=== PATIENT | female | born 1940 | race Caucasian/White ===

== ENCOUNTER 2016-02-25 13:11 | Emergency (ER) | payer OTHER ==
[2016-02-25 13:31] VITALS: BP 166/70; TEMP 98.4; BMI 41.5
[2016-02-25] MEDS ORDERED: DECADRON 4 MG/ML SDV IM STA (13:36)
[2016-02-25] MEDS ORDERED: DUONEB NEB STA (13:36)
--- NOTE | 2016-02-25 13:59 | DI ---
EXAM: PA and lateral views of the chest HISTORY: Cough. COMPARISON: None FINDINGS: The cardiomediastinal silhouette is the is unremarkable with mild fullness in the right h ilum.. There is no pneumothorax or pleural effusion. There is linear consolidation in the right mi ddle lobe. 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 IMPRESSION: Linear right middle lobe consolidation with fullness in the right hilum may represent a telectasis versus fibrosis. Fullness in the right hilum may represent vascular structure/aortic ect anika, soft tissue or mass. CT chest with contrast is recommended to further evaluate.
[2016-02-25 14:02] LABS: BASOPHILS # (AUTO) 0.1 K/uL (0-0.2); BASOPHILS % (AUTO) 0.7 % (0.0-3.0); EOSINOPHILS # (AUTO) 0.2 K/ul (0.0-0.7); EOSINOPHILS % (AUTO) 2.1 % (0.0-7.0); HEMATOCRIT 40.5 % (37.0-47.0); IMMATURE GRANULOCYTE % (AUTO) 0.3 % (0.0-5.0); LYMPHOCYTES % (AUTO) 22.3 (10.0-50.0); MEAN CORPUSCULAR HEMOGLOBIN 28.1 pg (27.0-31.0); MEAN CORPUSCULAR HGB CONC 32.1 (31.8-35.4); MEAN CORPUSCULAR VOLUME 87.5 fl (81.0-99.0); MONOCYTES # (AUTO) 0.6 K/uL (0.4-2.0); MONOCYTES % (AUTO) 6.5 (0-10); NEUTROPHILS # (AUTO) 6.1 K/ul (2.0-6.9); NEUTROPHILS % (AUTO) 68.1; PLATELET COUNT 264 10^3/uL (140-440); RED BLOOD COUNT 4.63 10^6/ul (4.20-5.40); WHITE BLOOD COUNT 8.98 K/ul (4.6-10.2)
[2016-02-25 14:31] LABS: ALBUMIN/GLOBULIN RATIO 1.14; ANION GAP 16.3; BILIRUBIN,TOTAL 0.69 mg/dL (0.00-1.20); BUN/CREATININE RATIO 24.17; CALCIUM 9.8 mg/dL (8.2-10.2); CREATININE 0.91 mg/dL (0.60-1.30); POTASSIUM 4.3 mmol/L (3.5-5.10); TOTAL PROTEIN 7.5 g/dL (5.8-8.1)
[2016-02-25 14:34] LABS: FLU INTERNAL QC INTERNAL QC VALID; RAPID FLU A NEGATIVE (NEGATIVE); RAPID FLU B NEGATIVE (NEGATIVE)
[2016-02-25 14:38] LABS: CREATINE KINASE MB 1.6 ng/ml (0.0-3.6)
--- NOTE | 2016-02-25 15:15 | ED.PDOC ---
General ED Provider: Dr. MARISSA MCDERMOTT Chief Complaint: Respiratory Complaint Stated Complaint: cough Time Seen by Physician: 13:11 (seen nursing staff at all times ) Mode of Arrival: Wheelchair Information Source: Patient Exam Limitations: No limitations Primary Care Provider: NANI WREN Nursing and Triage Documentation Reviewed and Agree: Yes Respiratory Complaint Exam - Respiratory Complaint/Exam Onset/Duration: 3 days of flu like symptoms Symptoms Are: Resolved Timing: Intermittent Initial Severity: Moderate Current Severity: Mild Location: Chest Character: Reports: Non-productive cough Aggravating: Reports: None Alleviating: Reports: Bronchodilators, Spontaneous resolution Associated Signs and Symptoms: Reports: Nasal congestion, Sore throat. Denies: Rapid breathing, Dyspnea, Fever, Chills, Chest pain, Pleuritic chest pain, Wheezing, Hemoptysis, Dizziness, Calf pain, Calf swelling, Edema, URI, Hoarseness, Sinus discomfort, Vomiting, Weight loss, Decreased oral intake, Increased thirst, Increased appetite, Increased urination Related History: Reports: Similar episode Related Surgical History: Reports: None Pulmonary Embolism Risk Factors: Bedrest Review of Systems - Review Of Systems Constitutional: Reports: Malaise Eyes: Reports: No symptoms Ears, Nose, Mouth, Throat: Reports: No symptoms Respiratory: Reports: Cough Cardiac: Reports: No symptoms GI: Reports: No symptoms : Reports: No symptoms Musculoskeletal: Reports: No symptoms Skin: Reports: No symptoms Neurological: Reports: No symptoms Endocrine: Reports: No symptoms Hematologic/Lymphatic: Reports: No symptoms All Other Systems: Reviewed and Negative Past Medical History - Past Medical History Previously Healthy: Yes Endocrine: Reports: Dyslipidemia Cardiovascular: Reports: Hypertension Respiratory: Reports: None Hematological: Reports: None Gastrointestinal: Reports: GERD Genitourinary: Reports: None Neuro/Psych: Reports: None Musculoskeletal: Reports: None Cancer: Reports: None Last Menstrual Period: unknown - Surgical History General Surgical History: Reports: None - Family History Family History: Reports: None - Social History Smoking Status: Former smoker Hx Substance Use: No Alcohol Screening: None Physical Exam - Physical Exam Appearance: Well-appearing, No pain distress, Well-nourished Eyes: TIM, EOMI, Conjunctiva clear ENT: Ears normal, Nose normal, Oropharynx normal Respiratory: Rhonchi Cardiovascular: RRR, Pulses normal, No rub, No murmur GI/: Soft, Nontender, No masses, Bowel sounds normal, No Organomegaly Musculoskeletal: Normal strength, ROM intact, No edema, No calf tenderness Skin: Warm, Dry, Normal color Neurological: Sensation intact, Motor intact, Reflexes intact, Cranial nerves intact, Alert, Oriented Psychiatric: Affect appropriate, Mood appropriate Interpretation - Radiology Interpretation Radiology Interpretation By: Radiologist Radiology Results: Positive (abnormality in the quetionable form of consolidation) - Motor 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 Rate: Normal Rhythm: Sinus Ectopy: None - EKG Interpretation Rate: Normal Rhythm: Sinus [place]: Left Re-Evaluation - Re-Evaluation Time of Re-Evaluation: 14:00 Status: Improved Vital Signs Stable: Yes Pain Level: no pain Appearance: NAD Lungs: Clear Skin: Warm and Dry Neuro: Alert and Oriented X3 CV: RRR - Re-Evaluation Time of Re-Evaluation: 15:15 Status: Improved Vital Signs Stable: Yes Appearance: NAD Skin: Warm and Dry Neuro: Alert and Oriented X3 CV: RRR Critical Care Note - Critical Care Note Total Time (mins): 0 Course - Course Hematology/Chemistry: 02/25/16 13:30 02/25/16 13:30 Orders, Labs, Meds: Lab Review 02/25/16 02/25/16 13:30 14:05 WBC 8.98 RBC 4.63 Hgb 13.0 Hct 40.5 MCV 87.5 MCH 28.1 MCHC 32.1 RDW Coeff of Vadim 14.6 Plt Count 264 Immature Gran % (Auto) 0.3 Neut % (Auto) 68.1 Lymph % (Auto) 22.3 [place] % (Auto) 6.5 Eos % (Auto) 2.1 Baso % (Auto) 0.7 Immature Gran # (Auto) 0.0 Neut # 6.1 Lymph # 2.0 [place] # 0.6 Eos # 0.2 Baso # 0.1 D-Dimer 0.85 Sodium 140 Potassium 4.3 Chloride 103 Carbon Dioxide 25 Anion Gap 16.3 BUN 22 H Creatinine 0.91 Estimated GFR (MDRD) 60.00 BUN/Creatinine Ratio 24.17 Glucose 123 H Calcium 9.8 Total Bilirubin 0.69 AST 35 ALT 32 Alkaline Phosphatase 136 Total Creatine Kinase 132 CK-MB (CK-2) 1.6 CK-MB (CK-2) % 1.92318 B-Natriuretic Peptide 14 Total Protein 7.5 Albumin 4.0 Globulin 3.5 Albumin/Globulin Ratio 1.14 Influenza A (Rapid) Negative Influenza B (Rapid) Negative Orders Category Date Time Status EKG-(ED ONLY) Stat CARDIO 02/25/16 13:36 Completed NEBULIZER TREATMENT Stat CARDIO 02/25/16 13:36 Completed NPO REMINDER: IMAGING ONCE CARE 02/25/16 14:02 Completed ED IV/MEDIPORT/POWERPORT .ONCE EMERGENCY 02/25/16 14:02 Active B-TYPE NATRIURETIC PEPTIDE Stat LAB 02/25/16 13:30 Completed CBC W/ AUTO DIFF Stat LAB 02/25/16 13:30 Completed COMPREHENSIVE METABOLIC PANEL Stat LAB 02/25/16 13:30 Completed CREATINE KINASE Stat LAB 02/25/16 13:30 Completed D-DIMER Stat LAB 02/25/16 13:30 Completed MOLECULAR GROUP A STREP Stat LAB 02/25/16 14:05 Results RAPID FLU A/B Stat LAB 02/25/16 14:05 Completed STREP SCREEN Stat LAB 02/25/16 14:05 Results 0.9 % Sodium Chloride [Saline Flush] MEDS 02/25/16 14:02 Ordered 1 syr IVF PRN PRN Dexamethasone 4 mg/ml Inj [Decadron 4 mg/ml Sdv] MEDS 02/25/16 13:36 Discontinued 4 mg IM ONCE STA Ipratropium/Albuterol Neb [Duoneb] MEDS 02/25/16 13:36 Discontinued 1 vial NEB ONCE STA CHEST, 2 VIEWS PA & LAT Stat RADS 02/25/16 13:[address] CHEST W/CONTRAST Stat RADS 02/25/16 14:01 Taken Medications Generic Name Dose Route Start Last Admin Trade Name Freq PRN Reason Stop Dose Admin Sodium Chloride 1 syr 02/25/16 14:02 Saline Flush IVF PRN PRN To flush IV Discontinued Medications Generic Name Dose Route Start Last Admin Trade Name Freq PRN Reason Stop Dose Admin Albuterol/Ipratropium 1 vial 02/25/16 13:36 02/25/16 13:52 Duoneb NEB 02/25/16 13:37 1 vial ONCE STA Administration Dexamethasone Sodium Phosphate 4 mg 02/25/16 13:36 02/25/16 14:04 Decadron 4 Mg/Ml Sdv IM 02/25/16 13:37 4 mg ONCE STA Administration Vital Signs: Temp Pulse Resp BP Pulse Ox 02/25/16 13:11 98.4 F 77 24 166/70 H 93 L Departure - Departure Time of Disposition: 16:00 Disposition: HOME SELF-CARE Discharge Problem: Bronchitis Instructions: Acute Bronchitis (ED) Condition: Good Pt referred to PMD for follow-up: No Additional Instructions: Please call your Family Physician as soon as possible to schedule a follow-up appointment. Allergies/Adverse Reactions: Allergies codeine Adverse Reaction (Verified 02/25/16 13:23) Penicillins Adverse Reaction (Verified 02/25/16 13:23) Sulfa (Sulfonamide Antibiotics) Adverse Reaction (Verified 02/25/16 13:23) Home Medications: Ambulatory Orders Amlodipine Besylate 5 mg PO DAILY 02/25/16 Atorvastatin Calcium [Lipitor] 10 mg PO DAILY 02/25/16 Benazepril HCl [Lotensin] 10 mg PO DAILY 02/25/16 Dicyclomine HCl 10 mg PO DAILY 02/25/16 Hydrocodone/Acetaminophen [Hydrocodon-Acetaminoph 7.5-325] 1 each PO BID Montelukast Sodium 10 mg PO DAILY 02/25/16 Omeprazole [Prilosec] 20 mg PO QDAC 02/25/16 Oxaprozin [Daypro] 600 mg PO BID 02/25/16 Pregabalin [Lyrica] 150 mg PO BID 02/25/16 Tizanidine HCl [Zanaflex] 4 mg PO BEDTIME 02/25/16 Tolterodine Tartrate 2 mg PO BID 02/25/16 Venlafaxine HCl [Venlafaxine HCl ER] 75 mg PO BID 02/25/16 Disposition Discussed With: Patient, Family
[2016-02-25] MEDS ORDERED: ZITHROMAX PO STA (15:16)
[2016-02-25] MEDS ORDERED: ROCEPHIN IM STA (15:22)
[2016-02-25] MEDS ORDERED: LIDOCAINE 1 % AMP 5 ML (SUTURES) IM STA ×2 (15:22→15:36)
--- NOTE | 2016-02-25 15:31 | CT ---
EXAM: CT chest with contrast HISTORY: Abnormal chest x-ray with lingular opacity COMPARISON: Chest x-ray same day TECHNIQUE: Serial axial images of the chest were obtained after 75 ml of Omnipaque IV contrast was administered. These were obtained from the lung apices to the upper abdomen. FINDINGS: The thyroid is normal. Visualized vessels are unremarkable. There is no dissection, ane urysm or stenosis. The heart is normal in size without pericardial effusion. There is no mediastin al, hilar or axillary pathologically enlarged lymph nodes. Subcarinal calcified lymph node is presen t with calcified lymph nodes in the right hilum. There is no pneumothorax or pleural effusion. There is linear atelectasis in the right middle lobe. There is no nodule or mass otherwise identified. The airways are patent. Soft tissues in the upper abdomen demonstrate a small 0.8 cm nodule in the left adrenal gland. The remaining soft tissues are unremarkable. The osseous structures are unremarkable. IMPRESSION: 1. Linear atelectasis versus fibrosis in the right middle lobe with no central mass or airway obstr uction. 2. Calcified lymph nodes consistent with sequela of old granulomatous disease. 3. Left adrenal nodule is indeterminate.
[2016-02-25] MEDS ORDERED: ROCEPHIN 1 GM in SODIUM CHLORIDE 50 ML IV STA (15:36)
[2016-02-25] MEDS ORDERED: ROCEPHIN ONE (15:48)
== END 2016-02-25 16:37 | disposition home or self-care (01) ==
LOC: ED 13:11
DX: J20.9 Acute bronchitis, unspecified (principal); J02.9 Acute pharyngitis, unspecified; R09.81 Nasal congestion; I10 Essential (primary) hypertension; E78.5 Hyperlipidemia, unspecified; Z79.899 Other long term (current) drug therapy
CPT/HCPCS: 36415; 80053; 82550; 82553; 83880; 85025; 85379; 87651; 87804; 87880; 93005; 93010; 94640; 96365; 96372; 99283

== ENCOUNTER 2016-07-09 11:00 | Outpatient (RCR) ==
--- NOTE | 2016-07-05 09:09 | RS.OPPTEV2 ---
Date of Note: 07/02/16 Visit #: 1 Date of Evaluation: 07/02/16 Payer Source: MEDICARE Treatment Diagnosis: Gait difficulty History of Condition/Mechanism of Injury:: Patient reports progressive difficulty with ambulation. Reports a history of falls. States she fell 5 times last year. She is unsure how many times she has fallen this year. States progressive low back pain limits her ability to walk far. Prior Level of Function.....Patient was independent with: ADL's, Self Care, Ambulation/Mobility, Community Integration/Access Functional Limitations: ADL's, Reaching, Pushing, Pulling, Lifting, Standing, Ambulation, Community Access/Integration Current Subjective/complaints:: Patient reports difficulty with ambulation due to back pain, breathing, and poor endurance. Reports she stumbles and will fall. She keeps a rollator in her car for times that she has to walk very far. She occasionally has some dizziness with position changes. States she gets out of breath easily with activity. States walking into the hospital today, she was out of breath by the time she got to the admitting department. Pain in her back increases with prolonged walking or standing. States she has a lot of difficulty sleeping. She cannot sleep in the bed. She sleeps in a lift chair. Medical History Medical History: Hypertension, Diabetes, Arthritis Surgical History: Cholecystectomy, Tonsillectomy Surgical History Comments:: Bilateral TKA, Right shoulder replacement Patient's Goals: Her goal is to decrease her falls and be able to walk without as much back pain. Pain Assessment - Pain Description Pain Location: low back Current Pain Intensity: 7/10 Worst Pain Intensity: 10/10 Functional Outcome Measure Tinetti: 22 (22/28=21.5% impairment) - G Codes & Severity Modifier G Codes & Modifier: Mobility current CJ. Mobility goal CH Source of G Code score: Tinetti Assessment Observation - Observation Posture: Forward Head, Rounded Shoulders, Decreased Lumbar Lordosis Gait - Gait Pattern Gait Comments: Patient ambulates without an assistive device with flexed forward posture at the hips. General Range of Motion: Bilateral LE AROM is WFL's. Muscle Strength: General strength of the LE's 4/5 at the hips, knees 4 to 4+/5, ankles 4+/5. Sensation - Sensation Right Lower Extremity: Intact/Normal Left Lower Extremity: Intact/Normal Balance - Sitting Balance Static Sitting Balance: Good Dynamic Sitting Balance: Good - Standing Balance Static Standing Balance: Good (-) Dynamic Standing Balance: Good (-) - Comments Balance Assessment Comments: Standing with eyes closed, patient demonstrates immediate anterior/posterior sway. Balance reactions with posterior displacement of COG are slightly impaired. Additional Comments: Additional Comments: Bilateral SLR to 45 degrees. Interventions - Exercise/Activities/Manual Therapy Exercises/Activities: NA Manual Therapy: NA - Charges Total Direct Minutes: 60 mins Total Treatment Time: 60 mins Procedures billed for this date of service:: EVAL medium Assessment Assessment: Patient presents to therapy with a diagnosis of unstable gait and deconditioning. She reports a history of falls and difficulty with walking due to balance issues, back pain, and shortness of air. She demonstrates general weakness of the LE's, especially her hips. She presents good potential to benefit from trunk and LE strengthening and balance exercises to improve her safety, confidence, and ability with ambulation. Patient Education: Education of diagnosis, Education of Plan of Care Rehab Potential: Good Short Term Goals Goal #1: Patient independent in basic HEP. Goal to be met by: 07/19/16 Goal #2: Bilateral hip flexion 4+/5. Goal to be met by: 07/19/16 Goal #3: Bilateral SLR to 55-60 degrees. Goal to be met by: 07/19/16 Alf Goals Goal #1: Patient knows HEP and to continue ex's to maintain functional level at D/C. Goal to be met by: 08/14/16 Goal #2: Score on Tinetti improved to 28/28. Goal to be met by: 08/14/16 Goal #3: Pt able to amb. community distances with min. difficulty & good safety. Goal to be met by: 08/14/16 Plan - Treatment to be Provided Procedures: Therapeutic Exercises, Therapeutic Activity, Neuromuscular Rehab, Patient Education Modalities: Hot Packs (prior to stretching) - Treatment Plan Frequency: 2-3 X week Duration: 4 weeks ORDER # VISITS AND/OR THROUGH DATE: 08/14/16 - Treatment Code (1) Gait abnormality Comments: R26.9 (2) Impaired functional mobility, balance, gait, and endurance Comments: Z74.09 (3) Back pain Qualifiers: Back pain location: low back pain Chronicity: unspecified Back pain laterality: unspecified Sciatica presence: unspecified whether sciatica present Qualified Description: Low back pain, unspecified back pain laterality, unspecified chronicity, with sciatica presence unspecified Qualifier Code(s): (M54.5) Low back pain (4) Muscle weakness of lower extremity Comments: M62.81
--- NOTE | 2016-07-09 12:08 | RS.OPPTDN ---
Subjective Date of Note: 07/09/16 Visit #: 2 Date of Evaluation: 07/02/16 Payer Source: MEDICARE Treatment Diagnosis: Gait difficulty Current Subjective/complaints:: Patient reports increased discomfort lowback today. [facility] physicians office called and she is to have another office visit due to new finding in lumbar spine. Pain Assessment - Pain Description Pain Location: low back Current Pain Intensity: 7/10 - Heat/Cryotherapy Treatment: Hot Pack ([id number] to lowback prior to EX. Patient in sitting. ) Interventions - Exercise/Activities/Manual Therapy Exercises/Activities: 30mins Assisted stretching of the bilateral hamstrings and SKTC. Isometric hip add, isometric hip flexion, alternate hip flexion, and pelvic tilts. Ended with additional stretching. Reivewed dx, body mechanics, safety, and HEP. Patient given copies of new exercises. Total minutes of Exercise: 30mins Manual Therapy: NA HOME EXERCISE PROGRAM: SKTC, Isometric hip add, isometric hip flexion, alternate hip flexion, and pelvic tilts. - Charges Total Direct Minutes: 30mins Total Treatment Time: 50mins Procedures billed for this date of service:: HP, EX2 Assessment: Patient tolerates initiation of HEP well. Will progress as tolerated. Patient Education: Education of diagnosis, Body/Joint mechanics, Home Exercise Program, Home Safety, Activity Modification Patient demonstrates compliance with HEP?: Yes Short Term Goals Goal #1: Patient independent in basic HEP. Goal to be met by: 07/19/16 Progress towards Goal:: Progressing Goal #2: Bilateral hip flexion 4+/5. Goal to be met by: 07/19/16 Progress towards Goal:: Progressing Goal #3: Bilateral SLR to 55-60 degrees. Goal to be met by: 07/19/16 Senior Materials Scientist Goals Goal #1: Patient knows HEP and to continue ex's to maintain functional level at D/C. Goal to be met by: 08/14/16 Goal #2: Score on Tinetti improved to 28/28. Goal to be met by: 08/14/16 Goal #3: Pt able to amb. community distances with min. difficulty & good safety. Goal to be met by: 08/14/16 Plan PLAN OF CARE EXPIRES ON:: 08/14/16 ORDER # VISITS AND/OR THROUGH DATE: 08/14/16 PLAN: Continue Plan of Care
== END 2016-07-10 ==
PROVIDERS: ATTEND Family Medicine
DX: R26.81 Unsteadiness on feet (principal)

== ENCOUNTER 2016-07-30 11:00 | Outpatient (RCR) ==
--- NOTE | 2016-07-11 13:38 | RS.OPPTDN ---
Subjective Date of Note: 07/11/16 Visit #: 3 Date of Evaluation: 07/02/16 Payer Source: MEDICARE Treatment Diagnosis: Gait difficulty Current Subjective/complaints:: Patient reports she is doing exercises. States back pain continues to limit her mobility and activity level. Pain Assessment - Pain Description Pain Location: low back Current Pain Intensity: moderate+ - Heat/Cryotherapy Treatment: Hot Pack ([id number] to the lowback prior to EX. Patient in sitting. ) Interventions - Exercise/Activities/Manual Therapy Exercises/Activities: 30mins Assisted stretching of the bilateral hamstrings and SKTC. Isometric hip add, isometric hip flexion, alternate hip flexion, and pelvic tilts. Ended with additional stretching. In standing at handrail, toe-ups , mini-squats, and marching to increased LE strength and balance. Reviewed dx, body mechanics, safety, and HEP. Patient given copies of new exercises. Total minutes of Exercise: 30mins Manual Therapy: [id number] Manual therapy of soft tissue mobilization to the bilateral lumbar paraspinals. Patient in right side-lying. Total minutes of Manual Therapy: 10mins HOME EXERCISE PROGRAM: SKTC, Isometric hip add, isometric hip flexion, alternate hip flexion, and pelvic tilts. Standing at kitchen sink for balance, toe-ups, mini-squats, and marching. - Charges Total Direct Minutes: 40mins Total Treatment Time: 60mins Procedures billed for this date of service:: HP, EX2, MT Assessment: Patient responding to treatment. She should be able to progress LE strength and balance when back pain improves. Patient Education: Body/Joint mechanics, Home Exercise Program, Home Safety, Activity Modification Patient demonstrates compliance with HEP?: Yes Short Term Goals Goal #1: Patient independent in basic HEP. Goal to be met by: 07/19/16 Progress towards Goal:: Progressing Goal #2: Bilateral hip flexion 4+/5. Goal to be met by: 07/19/16 Progress towards Goal:: Progressing Goal #3: Bilateral SLR to 55-60 degrees. Goal to be met by: 07/19/16 Long-Term Goals Goal #1: Patient knows HEP and to continue ex's to maintain functional level at D/C. Goal to be met by: 08/14/16 Goal #2: Score on Tinetti improved to 28/28. Goal to be met by: 08/14/16 Goal #3: Pt able to amb. community distances with min. difficulty & good safety. Goal to be met by: 08/14/16 Plan PLAN OF CARE EXPIRES ON:: 08/14/16 ORDER # VISITS AND/OR THROUGH DATE: 08/14/16 PLAN: Continue Plan of Care
--- NOTE | 2016-07-16 11:56 | RS.OPPTDN ---
Subjective Date of Note: 07/16/16 Visit #: 4 Date of Evaluation: 07/02/16 Payer Source: MEDICARE Treatment Diagnosis: Gait difficulty Current Subjective/complaints:: Patient reports having a bad night due to sitting long hours at hospital with family member. Pain Assessment - Pain Description Pain Location: low back Current Pain Intensity: moderate+ - Heat/Cryotherapy Treatment: Hot Pack ([id number] to the lowback prior to EX. Patient in sitting. ) Interventions - Exercise/Activities/Manual Therapy Exercises/Activities: 30mins Assisted stretching of the bilateral hamstrings and SKTC. Isometric hip add, isometric hip flexion, isometric trunk rotation, and pelvic tilts. Alt hip flexion with 3# each ankle, SLR 2s/.10reps each. Ended with additional stretching. In standing at handrail, toe-ups, mini-squats , and marching. Began yellow theraband for scapular retraction 2s/10reps. Reviewed dx, body mechanics, safety, and HEP. Patient given yellow theraband and copies of new exercises. Total minutes of Exercise: 30mins Manual Therapy: NA HOME EXERCISE PROGRAM: SKTC, Isometric hip add, isometric hip flexion, alternate hip flexion, and pelvic tilts. Standing at kitchen sink for balance, toe-ups, mini-squats, and marching. - Objective Findings Observations,measurements,etc.: SLR to 55 - 60 degrees bilaterally - Charges Total Direct Minutes: 30mins Total Treatment Time: 50mins Procedures billed for this date of service:: HP, EX2 Assessment: Patient with some exacerbation of pain due to sitting at hospital, but she is progressing with ability to perform exercises. Patient Education: Home Exercise Program Patient demonstrates compliance with HEP?: Yes Short Term Goals Goal #1: Patient independent in basic HEP. Goal to be met by: 07/19/16 (70%) Progress towards Goal:: Progressing Goal #2: Bilateral hip flexion 4+/5. Goal to be met by: 07/19/16 (50%) Progress towards Goal:: Progressing Goal #3: Bilateral SLR to 55-60 degrees. Goal to be met by: 07/19/16 (100%) Progress towards Goal:: Met Detention Goals Goal #1: Patient knows HEP and to continue ex's to maintain functional level at D/C. Goal to be met by: 08/14/16 Progress towards goal: Progressing Goal #2: Score on Tinetti improved to 28/28. Goal to be met by: 08/14/16 Goal #3: Pt able to amb. community distances with min. difficulty & good safety. Goal to be met by: 08/14/16 Progress towards goal: Progressing Plan PLAN OF CARE EXPIRES ON:: 08/14/16 ORDER # VISITS AND/OR THROUGH DATE: 08/14/16 PLAN: Continue Plan of Care (Continue and progress exercise to reduce pain and increase balance and functional activity level.)
--- NOTE | 2016-07-18 14:56 | RS.OPPTDN ---
Subjective Date of Note: 07/18/16 Visit #: 5 Date of Evaluation: 07/02/16 Payer Source: MEDICARE Treatment Diagnosis: Gait difficulty Current Subjective/complaints:: Patient says she is not feeling much better regarding her back. She says she barely could do much exercise last session. She says she has been worried about family member in the hospital and has been sitting a lot. Pain Assessment - Pain Description Pain Location: low back Current Pain Intensity: moderate+ - Heat/Cryotherapy Treatment: Hot Pack (20 mins to the mid to low back in sitting) Interventions - Exercise/Activities/Manual Therapy Exercises/Activities: 30mins Assisted stretching of the bilateral hamstrings and SKTC. Isometric hip add, isometric hip flexion, isometric trunk rotation, and pelvic tilts. Alt hip flexion with 3# each ankle, SAQ 3# each , SLR 2s/ .10reps each. In standing at handrail, toe-ups, mini-squats, and marching. Continued with yellow theraband for scapular retraction 2s/10reps. Reviewed dx , body mechanics, safety, and HEP. Manual Therapy: NA HOME EXERCISE PROGRAM: SKTC, Isometric hip add, isometric hip flexion, alternate hip flexion, and pelvic tilts. Standing at kitchen sink for balance, toe-ups, mini-squats, and marching. - Charges Total Direct Minutes: 30 Total Treatment Time: 50 Procedures billed for this date of service:: hp, ex2 Assessment: Patient continues with mod back pain and general fatigue related to spending time with family at hospital. She has difficulty sleeping as well. She appeared to edyta all therex well today. Patient Education: Education of diagnosis, Body/Joint mechanics, Home Exercise Program, Home Safety, Activity Modification, Education of Plan of Care Patient demonstrates compliance with HEP?: Yes Short Term Goals Goal #1: Patient independent in basic HEP. Goal to be met by: 07/19/16 (70%) Progress towards Goal:: Progressing Goal #2: Bilateral hip flexion 4+/5. Goal to be met by: 07/19/16 (50%) Progress towards Goal:: Progressing Goal #3: Bilateral SLR to 55-60 degrees. Goal to be met by: 07/19/16 (100%) Progress towards Goal:: Met [facility] Goals Goal #1: Patient knows HEP and to continue ex's to maintain functional level at D/C. Goal to be met by: 08/14/16 Progress towards goal: Progressing Goal #2: Score on Tinetti improved to 28/28. Goal to be met by: 08/14/16 Goal #3: Pt able to amb. community distances with min. difficulty & good safety. Goal to be met by: 08/14/16 Progress towards goal: Progressing Plan PLAN OF CARE EXPIRES ON:: 08/14/16 ORDER # VISITS AND/OR THROUGH DATE: 08/14/16 PLAN: Progress Exercises
--- NOTE | 2016-07-23 13:55 | RS.OPPTDN ---
Subjective Date of Note: 07/23/16 Visit #: 6 Date of Evaluation: 07/02/16 Payer Source: MEDICARE Treatment Diagnosis: Gait difficulty Current Subjective/complaints:: Patient reports she is doing better with exercise, but back pain persists. Pain Assessment - Pain Description Pain Location: low back Current Pain Intensity: moderate+ - Heat/Cryotherapy Treatment: Hot Pack ([id number] to the lowback prior to EX. Patient in sitting. ) Interventions - Exercise/Activities/Manual Therapy Exercises/Activities: 25mins Assisted stretching of the bilateral hamstrings, SKTC, trunk rotation. Isometric hip add, isometric hip flexion, isometric trunk rotation, and pelvic tilts. Alt hip flexion increasead to 4# each ankle, SAQ 4# each , SLR 2s/10reps each. Green theraband for scapular retraction 2s/10reps. Reviewed dx, body mechanics, safety, and HEP. Total minutes of Exercise: 25mins Manual Therapy: NA HOME EXERCISE PROGRAM: SKTC, Isometric hip add, isometric hip flexion, alternate hip flexion, and pelvic tilts. Standing at kitchen sink for balance, toe-ups, mini-squats, and marching. - Charges Total Direct Minutes: 25mins Total Treatment Time: 45mins Procedures billed for this date of service:: HP, EX2 Assessment: Patient needs to continue strengthening and increase walking. Patient Education: Home Exercise Program Patient demonstrates compliance with HEP?: Yes Short Term Goals Goal #1: Patient independent in basic HEP. Goal to be met by: 07/19/16 (75%) Progress towards Goal:: Progressing Goal #2: Bilateral hip flexion 4+/5. Goal to be met by: 07/19/16 (75%) Progress towards Goal:: Progressing Comments:: Right hip 4+/5 and left hip 4 to 4+/5 Goal #3: Bilateral SLR to 55-60 degrees. Goal to be met by: 07/19/16 (100%) Progress towards Goal:: Met [facility] Goals Goal #1: Patient knows HEP and to continue ex's to maintain functional level at D/C. Goal to be met by: 08/14/16 Progress towards goal: Progressing Goal #2: Score on Tinetti improved to 28/28. Goal to be met by: 08/14/16 Goal #3: Pt able to amb. community distances with min. difficulty & good safety. Goal to be met by: 08/14/16 Progress towards goal: Progressing Plan PLAN OF CARE EXPIRES ON:: 08/14/16 ORDER # VISITS AND/OR THROUGH DATE: 08/14/16 PLAN: Continue Plan of Care
--- NOTE | 2016-07-25 14:36 | RS.OPPTDN ---
Subjective Date of Note: 07/25/16 Visit #: 7 Date of Evaluation: 07/02/16 Payer Source: MEDICARE Treatment Diagnosis: Gait difficulty Current Subjective/complaints:: Patient reports she is feeling much better today. States she has been walking more the last few days. Pain Assessment - Pain Description Pain Location: low back Current Pain Intensity: mild to mod - Heat/Cryotherapy Treatment: Cryotherapy ([id number] to the lowback prior to EX. Patient in sitting. ) Interventions - Exercise/Activities/Manual Therapy Exercises/Activities: 30mins Assisted stretching of the bilateral hamstrings, SKTC, trunk rotation. Isometric hip add, isometric hip flexion, isometric trunk rotation, and pelvic tilts. Alt hip flexion 4# each ankle, SAQ 4# each , SLR 2s/ 10reps each. Green theraband for scapular retraction 2s/10reps. In standing, toe -ups, mini-squats, and marching at handrail. Reviewed dx, body mechanics, safety , and HEP. Total minutes of Exercise: 30mins Manual Therapy: NA HOME EXERCISE PROGRAM: SKTC, Isometric hip add, isometric hip flexion, alternate hip flexion, and pelvic tilts. Standing at kitchen sink for balance, toe-ups, mini-squats, and marching. - Charges Total Direct Minutes: 30mins Total Treatment Time: 50mins Procedures billed for this date of service:: HP, EX2 Assessment: Patient reporting a reduction in pain and an increase in her walking. Patient Education: Home Exercise Program, Home Safety, Activity Modification Patient demonstrates compliance with HEP?: Yes Short Term Goals Goal #1: Patient independent in basic HEP. Goal to be met by: 07/19/16 (75%) Progress towards Goal:: Progressing Goal #2: Bilateral hip flexion 4+/5. Goal to be met by: 07/19/16 (90%) Progress towards Goal:: Progressing Comments:: Left hip flex 4+/5 and Right hip flex 4 to 4+/5 MMT Goal #3: Bilateral SLR to 55-60 degrees. Goal to be met by: 07/19/16 (100%) Progress towards Goal:: Met [employer] Goals Goal #1: Patient knows HEP and to continue ex's to maintain functional level at D/C. Goal to be met by: 08/14/16 Progress towards goal: Progressing Goal #2: Score on Tinetti improved to 28/28. Goal to be met by: 08/14/16 Goal #3: Pt able to amb. community distances with min. difficulty & good safety. Goal to be met by: 08/14/16 Progress towards goal: Progressing Plan PLAN OF CARE EXPIRES ON:: 08/14/16 ORDER # VISITS AND/OR THROUGH DATE: 08/14/16 PLAN: Continue Plan of Care
--- NOTE | 2016-07-30 13:55 | RS.OPPTDN ---
Subjective Date of Note: 07/30/16 Visit #: 8 Date of Evaluation: 07/02/16 Payer Source: MEDICARE Treatment Diagnosis: Gait difficulty Current Subjective/complaints:: Patient reports increased back pain again today. States she is working on HEP and feels stronger but overall pain is returning. Pain Assessment - Pain Description Pain Location: low back Current Pain Intensity: mod - Heat/Cryotherapy Treatment: Hot Pack ([id number] to the lowback prior to EX. Patient in sitting. ) Interventions - Exercise/Activities/Manual Therapy Exercises/Activities: 30mins Assisted stretching of the bilateral hamstrings, SKTC, trunk rotation. Isometric hip add, isometric hip flexion, and pelvic tilts. Alt hip flexion each ankle, SAQ, SLR 2s/10reps each. Green theraband for ham curls, hip add, and hip abd. In sitting, green theraband for scapular retraction 2s/10reps. In standing, toe-ups, mini-squats, and marching at handrail. Added alt hip extension and alt hip abduction at handrail. Reviewed dx , body mechanics, safety, and HEP. Total minutes of Exercise: 30mins Manual Therapy: NA HOME EXERCISE PROGRAM: SKTC, Isometric hip add, isometric hip flexion, alternate hip flexion, and pelvic tilts. Standing at kitchen sink for balance, toe-ups, mini-squats, and marching. - Objective Findings Observations,measurements,etc.: Patient demos some improvement in balance with Tinetti score up one point to 23/28 or 17.9% impairmnet (was 22/28 or 21.5% on Eval). - Charges Total Direct Minutes: 30mins Total Treatment Time: 50mins Procedures billed for this date of service:: HP, EX2 Assessment: Patient demos improvement in postural awareness, balance, and is independent with HEP. She feels back pain is the same and limiting her functional mobility. Patient will need to continue HEP following D/C. Patient Education: Home Exercise Program, Home Safety, Activity Modification, Education of Plan of Care Comments: Reviewed and finalized patient education of dx, safety, and HEP. Patient demonstrates compliance with HEP?: Yes Short Term Goals Goal #1: Patient independent in basic HEP. Goal to be met by: 07/19/16 (100%) Progress towards Goal:: Met Goal #2: Bilateral hip flexion 4+/5. Goal to be met by: 07/19/16 (90%) Progress towards Goal:: Met Goal #3: Bilateral SLR to 55-60 degrees. Goal to be met by: 07/19/16 (100%) Progress towards Goal:: Met Correction Goals Goal #1: Patient knows HEP and to continue ex's to maintain functional level at D/C. Goal to be met by: 08/14/16 (100%) Progress towards goal: Met Goal #2: Score on Tinetti improved to 28. Goal to be met by: 08/14/16 Progress towards goal: Progressing Comments: Goal #3: Pt able to amb. community distances with min. difficulty & good safety. Goal to be met by: 08/14/16 (50%) Progress towards goal: Progressing Plan PLAN OF CARE EXPIRES ON:: 08/14/16 ORDER # VISITS AND/OR THROUGH DATE: 08/14/16 PLAN: Plan for Discharge (Discharge with HEP.)
== END 2016-08-09 ==
PROVIDERS: ATTEND Family Medicine
DX: R26.89 Other abnormalities of gait and mobility (principal)

== ENCOUNTER 2017-09-01 16:12 | Outpatient (CLI) ==
--- NOTE | 2017-09-02 08:36 | DI ---
EXAM: Chest two views HISTORY: Bronchitis, nonspecified as acute or chronic COMPARISON: 02/25/2016 TECHNIQUE: Two views of the chest were performed FINDINGS: Bibasilar subsegmental atelectasis and/or scarring. No airspace consolidation. There is no pleural effusion or pneumothorax. The heart is normal in size. The mediastinal contour is unchan ged, noting atherosclerosis. There are no acute abnormalities of the bones. Right shoulder arthropla sty. IMPRESSION: Bibasilar subsegmental atelectasis and/or scarring. No airspace consolidation.
== END 2017-09-01 16:13 | disposition home or self-care (01) ==
LOC: RAD 16:12
PROVIDERS: ATTEND Family Medicine
DX: J40 Bronchitis, not specified as acute or chronic (principal); R05 Cough

== ENCOUNTER 2017-09-12 08:15 | Outpatient (CLI) ==
--- NOTE | 2017-09-12 10:14 | CT ---
Exam: CT of the chest with intravenous contrast. Comparison: [birth year]/1969. Reason for exam: Cough. FINDINGS: No pleural effusion, or focal consolidation in the partially imaged lung bases. There is mild basilar atelectasis. The aorta is normal in course and caliber. The heart is not enla rged. The imaged portions of the airway appear unremarkable. No acute fracture or malalignment. The vertebral body and intervertebral body disc space heights are relatively well maintained. No suspicious appearing osteoblastic or osteolytic lesions. Impression: 1. No pneumothorax, pleural effusion, or focal consolidation. 2. No suspicious appearing osteoblastic or osteolytic lesions. 3. Mild basilar atelectasis.
== END 2017-09-12 08:16 | disposition home or self-care (01) ==
LOC: RAD 08:15
PROVIDERS: ATTEND Family Medicine
DX: R05 Cough (principal)
CPT/HCPCS: 36415; 82565

== ENCOUNTER 2017-09-16 14:14 | Outpatient (POV) | END 2017-09-16 17:00 | LOC: OUTPT 14:14 | PROVIDERS: ATTEND Otolaryngology | DX: H91.90 Unspecified hearing loss, unspecified ear (principal) ==

== ENCOUNTER 2017-10-27 10:32 | Outpatient (CLI) | payer OTHER ==
[2017-10-16 08:06] VITALS: BMI 39.1
== END 2017-10-27 10:55 | disposition short-term general hospital (02) ==
LOC: AMBL 10:32
PROVIDERS: ATTEND Internal Medicine
DX: R10.84 Generalized abdominal pain (principal); K85.90 Acute pancreatitis without necrosis or infection, unspecified; R00.0 Tachycardia, unspecified; R11.0 Nausea; S40.022A Contusion of left upper arm, initial encounter; S40.021A Contusion of right upper arm, initial encounter

== ENCOUNTER 2017-12-26 17:27 | Emergency (ER) | payer OTHER ==
[2017-12-26 17:32] VITALS: BP 116/77; TEMP 98.1; BMI 34.0
--- NOTE | 2017-12-26 17:59 | ED.PDOC ---
General ED Provider: Dr. MARISSA MCDERMOTT Chief Complaint: Nausea/Vomiting Stated Complaint: voited x 1 2 days ago has mild abdominal discomfort homehealth R.N. told her to come to ED Time Seen by Physician: 17:30 (seen with nurse at all times ) Mode of Arrival: Walk-In Information Source: Patient Exam Limitations: No limitations Primary Care Provider: TA ALBARADO Nursing and Triage Documentation Reviewed and Agree: Yes Does patient meet sepsis criteria?: No System Inflammatory Response Syndrome: Not Applicable Sepsis Protocol: For patient's 13 years and over: Temp is 96.8 and below OR 101 and greater Pulse >90 BPM Resp >20/minute Acutely Altered Mental Status Are patient's symptoms suggestive of a new infection, such as: -Pneumonia -Skin, Soft Tissue -Endocarditis -UTI -Bone, Joint Infection -Implantable Device -Acute Abdominal Infection -Wound Infection -Meningitis -Blood Stream Catheter Infection -Unknown GI Complaint Exam - Vomiting/Diarrhea Complaint/Exam Onset/Duration: vomited x1 Symptoms Are: Still present Episodes of Vomiting over last 24 Hours: 1 (no black or bloody stools reported ) Episodes of Diarrhea Over Last 24 Hours: 0 Initial Severity: Mild Current Severity: Mild Character of Vomiting: Reports: Non-bilious Aggravating: Reports: None Alleviating: Reports: None Associated Signs and Symptoms: Reports: Abdominal pain. Denies: Dizziness, Light-headedness, Melena, Hematemesis, Fever, Cramping Related History: Reports: Similar episode Last Oral Intake: today Last Bowel Movement: today Surgical Obstruction Risk Factors: Reports: None Related Surgical History: Reports: None Abdominal Findings: Present: None Kussmaul Respirations Present: No Differential Diagnoses: Bowel Obstruction, Pancreatitis, UTI Review of Systems - Review Of Systems Constitutional: Reports: No symptoms Eyes: Reports: No symptoms Ears, Nose, Mouth, Throat: Reports: No symptoms Respiratory: Reports: No symptoms Cardiac: Reports: No symptoms GI: Reports: Abdominal pain, Vomiting (x1) : Reports: No symptoms Musculoskeletal: Reports: No symptoms Skin: Reports: No symptoms Neurological: Reports: No symptoms Endocrine: Reports: No symptoms Hematologic/Lymphatic: Reports: No symptoms All Other Systems: Reviewed and Negative Past Medical History - Past Medical History Previously Healthy: Yes Endocrine: Reports: Dyslipidemia Cardiovascular: Reports: Hypertension Respiratory: Reports: None Hematological: Reports: None Gastrointestinal: Reports: GERD Genitourinary: Reports: None Neuro/Psych: Reports: None Musculoskeletal: Reports: None Cancer: Reports: None Last Menstrual Period: none - Surgical History General Surgical History: Reports: Hysterectomy, Appendectomy, Cholecystectomy - Family History Family History: Reports: None - Social History Smoking Status: Former smoker Hx Substance Use: No Alcohol Screening: None Physical Exam - Physical Exam Appearance: Well-appearing, No pain distress, Well-nourished Eyes: TIM, EOMI, Conjunctiva clear ENT: Ears normal, Nose normal, Oropharynx normal Respiratory: Airway patent, Breath sounds clear, Breath sounds equal, Respirations nonlabored Cardiovascular: RRR, Pulses normal, No rub, No murmur GI/: Soft, Nontender, No masses, Bowel sounds normal, No Organomegaly Musculoskeletal: Normal strength, ROM intact, No edema, No calf tenderness Skin: Warm, Dry, Normal color Neurological: Sensation intact, Motor intact, Reflexes intact, Cranial nerves intact, Alert, Oriented Psychiatric: Affect appropriate, Mood appropriate Interpretation - Radiology Interpretation Radiology Interpretation By: Radiologist Re-Evaluation - Re-Evaluation Time of Re-Evaluation: 18:27 (SEEN WITH HER NURSE ) Status: Improved Vital Signs Stable: Yes Pain Level: 0 Appearance: NAD Lungs: Clear Skin: Warm and Dry Neuro: Alert and Oriented X3 CV: RRR Physician Notification - Case Discussed Physician Notified: pmd Time of Notification: 18:26 (imaging labs discussed PMD STATED PT CAN BE SEEN ON FRIDAY AND RETURN IF HAS PAIN OR VOMITING) Critical Care Note - Critical Care Note Total Time (mins): 0 Course - Course Hematology/Chemistry: 12/26/17 17:52 12/26/17 17:52 Orders, Labs, Meds: Lab Review 12/26/17 12/26/17 12/26/17 17:52 17:52 18:06 WBC 8.52 RBC 4.17 L Hgb 12.0 Hct 36.5 L MCV 87.5 MCH 28.8 MCHC 32.9 RDW Coeff of Vadim 13.9 Plt Count 280 Immature Gran % (Auto) 0.2 Neut % (Auto) 60.1 Lymph % (Auto) 27.0 [place] % (Auto) 6.5 Eos % (Auto) 5.5 Baso % (Auto) 0.7 Immature Gran # (Auto) 0.0 Neut # (Auto) 5.1 Lymph # (Auto) 2.3 [place] # (Auto) 0.6 Eos # (Auto) 0.5 Baso # (Auto) 0.1 Sodium 137.8 Potassium 3.34 L Chloride 103.0 Carbon Dioxide 28.7 Anion Gap 9.44 BUN 17.9 H Creatinine 0.61 Estimated GFR (MDRD) 95.00 BUN/Creatinine Ratio 29.34 Glucose 105.1 Calcium 9.74 Total Bilirubin 0.50 AST 58.6 H ALT 26.8 Alkaline Phosphatase 331.1 H Total Protein 7.27 Albumin 3.77 Globulin 3.50 Albumin/Globulin Ratio 1.07 Amylase 36.3 Lipase 45.8 Urine Color Yellow Urine Clarity Slightly Urine pH 7.0 Ur Specific [place] 1.015 Urine Protein 1+ Urine Glucose (UA) Negative Urine Ketones Negative Urine Blood Trace-intact Urine Nitrite Negative Urine Bilirubin 1+ Urine Urobilinogen 0.2 Ur Leukocyte Esterase 2+ Urine Microscopic RBC 0-2 Urine Microscopic WBC 20-30 Ur Squamous Epith Cells 5-10 Amorphous Sediment Trace Urine Bacteria 3+ Urine Mucus Trace Orders Category Date Time Status AMYLASE Stat LAB 12/26/17 17:52 Completed CBC W/ AUTO DIFF Stat LAB 12/26/17 17:52 Completed COMPREHENSIVE METABOLIC PANEL Stat LAB 12/26/17 17:52 Completed LIPASE Stat LAB 12/26/17 17:52 Completed URINALYSIS C & S IF INDICATED Stat LAB 12/26/17 18:[address] ABDOMEN/PELVIS WO CONTRAST Stat RADS 12/26/17 17:41 Completed Vital Signs: Temp Pulse Resp BP Pulse Ox 12/26/17 17:28 98.1 F 104 H 18 116/77 96 Departure - Departure Time of Disposition: 18:27 Disposition: HOME SELF-CARE Discharge Problem: Nausea, Vomiting Instructions: Abdominal Pain (ED) Condition: Good Pt referred to PMD for follow-up: Yes IPMP verified?: No Additional Instructions: Please call your Family Physician as soon as possible to schedule a follow-up appointment. Allergies/Adverse Reactions: Allergies codeine Adverse Reaction (Verified 12/26/17 17:33) Penicillins Adverse Reaction (Verified 12/26/17 17:33) Sulfa (Sulfonamide Antibiotics) Adverse Reaction (Verified 12/26/17 17:33) paper tape Allergy (Uncoded 09/01/17 15:11) Rash Home Medications: Ambulatory Orders Amlodipine Besylate 5 mg PO DAILY 01/15/17 Hydrocodone/Acetaminophen [Hydrocodon-Acetaminoph 7.5-325] 1 each PO TID Montelukast Sodium 10 mg PO DAILY 02/25/16 Tizanidine HCl [Zanaflex] 4 mg PO TID PRN 02/25/16 Atorvastatin Calcium 20 mg PO DAILY 09/01/17 Fesoterodine Fumarate [Toviaz] 8 mg PO DAILY 09/01/17 Linagliptin [Tradjenta] 5 mg PO DAILY 09/01/17 Sumatriptan Succinate [Imitrex] 100 mg PO DIRECTED 09/01/17 Topiramate 50 mg PO BID 09/01/17 Venlafaxine HCl [Venlafaxine Hcl Er] 150 mg PO DAILY 09/01/17 Losartan Potassium [Cozaar] 100 mg PO DAILY 12/26/17 Pantoprazole Sodium [Protonix] 40 mg PO QDAC 12/26/17 Disposition Discussed With: Patient, Family
--- NOTE | 2017-12-26 18:16 | CT ---
EXAM: CT scan of the abdomen and pelvis without contrast HISTORY: Pain, nausea, recent pancreatitis and bladder infection TECHNIQUE: Helical imaging of the abdomen pelvis was performed without contrast. 3 mm thin axial im ages and coronal and sagittal reconstructions were provided for interpretation. Comparison 10/16/2017 CT scan of the abdomen and pelvis. FINDINGS: The evaluation was limited without intravenous contrast. There is worsening edema seen within the head of the pancreas as well as mild swelling of the body an d tail of the pancreas. The liver, spleen, kidneys are normal. The proximal ureters are normal size. There is a nonobstructing calculus seen within the inferior pole of the right kidney. No acute abn ormalities are seen within the adrenal glands. There is no free air. The helical images obtained through the pelvis demonstrate a normal appearance of the rectum, urinary bladder. There is no free fluid seen within the pelvis. No retroperitoneal abnormalities are seen. There is mild scarring or atelectasis seen within the lung bases bilaterally. No lytic or blastic l esions are seen within the osseous structures. IMPRESSION: Overall limited evaluation without intravenous contrast. There is worsening swelling of the pancreas as described above. The findings may represent acute wors ening pancreatitis versus residual ongoing pancreatitis when compared to previous study. There is no evidence of pseudocyst formation. Comparison to more recent cross-sectional imaging of the abdomen an d pelvis if available should be performed. There is no bowel obstruction. There is no ureteral obstruction. Nonobstructing nephrolithiasis seen within the right kidney.
== END 2017-12-26 18:35 | disposition home or self-care (01) ==
LOC: ED 17:27
DX: R11.2 Nausea with vomiting, unspecified (principal); R10.9 Unspecified abdominal pain; E78.5 Hyperlipidemia, unspecified; I10 Essential (primary) hypertension; Z79.899 Other long term (current) drug therapy
CPT/HCPCS: 36415; 80053; 81001; 82150; 83690; 85025; 87086; 99283

== ENCOUNTER 2018-02-05 | Outpatient (CLI) | END 2018-02-05 10:09 | disposition short-term general hospital (02) ==